=== PATIENT | female | born 1995 | race Caucasian/White ===

== ENCOUNTER 2023-11-06 13:22 | Emergency (ER) | payer OTHER, SELFPAY ==
[2023-11-06 13:26] VITALS: BP 100/65
[2023-11-06 13:39] LABS: % Basophils 1.2 % (0-2); % Eosinophils 7.1 % (0-6); % Immature Granulocytes 0.4 % (0-0.5); % Lymphocytes 30.6 % (20.5-51.1); % Monocytes 8.3 % (1.7-9.3); % Neutrophils 52.4 % (42.2-75.2); Absolute Basophils 0.1 10^3/uL (0-0.2); Absolute Eosinophils 0.5 10^3/uL (0-0.7); Absolute Lymphocytes 2.3 10^3/uL (1.2-3.4); Absolute Monocytes 0.6 10^3/uL (0.1-0.6); Absolute Neutrophils 3.9 10^3/uL (1.4-6.5); Hematocrit 39.6 % (37.0-47.0); Hemoglobin 13.5 g/dL (12.0-16.0); Mean Corp Hgb Conc. 34.1 g/dL (33.0-37.0); Mean Corpuscular Hgb 31.5 pg (27.0-31.0); Mean Corpuscular Volume 92.5 fL (81.0-99.0); Mean Platelet Volume 8.4 fL (7.4-10.4); Nucleated Red Blood Cells % 0 %; Platelet Count 339 10^3/uL (130-400); Red Blood Cell Count 4.28 10^6/uL (4.20-5.40); Red Cell Dist. Width 11.7 % (11.5-14.5); White Blood Cell Count 7.5 10^3/uL (4.8-10.8)
[2023-11-06 13:53] LABS: HCG, Serum Qualitative Screen Negative
[2023-11-06 13:55] LABS: ALT (SGPT) 19 U/L (0-35); AST (SGOT) 23 U/L (14-36); Albumin 4.6 g/dl (3.5-5.0); Alkaline Phosphatase 74 U/L (38-126); Blood Urea Nitrogen 15 mg/dl (7-17); Calcium 9.3 mg/dl (8.4-10.2); Carbon Dioxide 26 mmol/L (22-30); Chloride 106 mmol/L (98-107); Glucose 85 mg/dl (70-99); Lipase 205 U/L (23-300); Sodium 141 mmol/L (135-145); Total Bilirubin 0.4 mg/dl (0.2-1.3); Total Protein 7.4 g/dl (6.3-8.2); eGFR > 60.00
--- NOTE | 2023-11-06 15:38 | ED.GENMED ---
History of Present Illness
General
Chief Complaint: Abdominal Symptoms
Source: patient
Exam Limitations: none
Time Seen by Provider: 11/06/23 15:24
Travel History
Have you had any contact with someone who has COVID-19?: No
Do you have any symptoms of coronavirus? Fever > 100 degrees, chills, cough, shortness of breath, sore throat, loss of taste or smell, muscle aches, or headache?: No
History of Present Illness
History of Present Illness:
27-year-old female with right upper quadrant pain that radiates to the back that has been ongoing fairly consistently for the past 8 days. The pain is made worse slightly with deep breathing. She notes she is nauseous without vomiting. She notes
her stools have been manager drug in color and more loose. No sweats or chills. The pain is not made worse with eating. She does have history of reflux. She notes prior to the onset of her symptoms she had a 12-hour one-way drive to [place] and
back. She denies cough or hemoptysis. There is no chest pain or shortness of breath. No other complaints at this time
Past History
Past History
ED Past Medical History: Cancer (hodgkins lymphoma) and Psychiatric (A/D)
ED Past Surgical History: Other (lymph node bx)
Social History
Tobacco: Non-smoker
Alcohol: None
Drug: None
Personal: Single
Living: with family
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
Family History
Family History: Other (no fam hx of childhood cancer)
Phy Exam
Physical Exam
Physical Exam:
General: Well-appearing female no acute respiratory distress
HEENT: Normocephalic atraumatic sclera anicteric
Heart: Regular rate and rhythm no murmur
Lungs: Clear no wheezing
Abdomen soft tender to the right upper quadrant mild guarding no rebound tenderness normal bowel sounds no costovertebral angle tenderness
Extremities: No cyanosis or edema
Skin: Warm no rash
Course
Orders/Labs/Results
Orders:
Orders
11/06/23 13:31
Electrocardiogram (*1) Urgent
Reason for Study: Fatigue / Weakness
EKG- Treatment ONCE
Test Result ONCE
11/06/23 13:32
Complete Blood Count/With Diff Urgent
Comprehensive Metabolic Panel Urgent
HCG, Serum Qualitative Screen Urgent
Lipase Urgent
11/06/23 15:35
US Abdomen Complete/Upper Urgent
Comment:
Reason For Exam: RUQ pain
11/06/23 15:37
0.9% Sodium Chloride 1000 ml [Nss] 1,000 ml IV BOLUS
11/06/23 16:06
D-Dimer Urgent
11/06/23 16:44
Urinalysis Reflex To Culture Urgent
Date Specimen was Collected: 11/06/23
Time Specimen was Collected: 16:34
Abnormal Lab Results
11/06/23
13:32
MCH 31.5 H pg
(27.0-31.0)
Eosinophils % 7.1 H %
(0-6)
11/06/23 13:32
11/06/23 13:32
Vital Signs
Initial and Last Documented VS:
Initial Vital Signs
Temp Pulse Resp BP Pulse Ox
98.6 F 95 16 100/65 98
11/06/23 13:26 11/06/23 13:26 11/06/23 13:26 11/06/23 13:26 11/06/23 13:26
Last Documented Vital Signs
Temp Pulse Resp BP Pulse Ox
98.6 F 81 16 110/65 98
11/06/23 13:26 11/06/23 17:50 11/06/23 13:26 11/06/23 17:50 11/06/23 13:26
MDM/Problems Addressed
Differential Diagnosis Includes:
Right upper quadrant abdominal pain. Consider musculoskeletal pain versus renal colic versus biliary colic versus gastritis versus constipation. Patient also had a long trip consider possible PE given that is slightly worse with deep breathing.
Will check labs D-dimer added for screening. Will start with ultrasound of the given fluids urinalysis pending
*Critical Care Note
Total Time (30-74mins, 75-104mins- exclusive of procedures): Not Applicable
Update Note
Update Note:
Ultrasound negative for acute abdominal pathology. Urinalysis negative D-dimer negative. Patient has right flank pain. No respiratory distress. Not a PE with negative D-dimer. Suspect possible musculoskeletal flank pain versus gastritis given
recent NSAID use. Recommended Tylenol for pain. Stable for discharge with follow-up
ED Attending Note
-
Portions of this chart may have been created with voice recognition software.� Occasional wrong word or��sound alike� substitutions may have occurred due to the inherent limitations of voice recognition software.
Discharge Plan
Departure
Patient Disposition: Home (Routine Discharge)
Date of Disposition: 11/06/23
Time of Disposition: 17:12
Patient with high blood pressure during this ER visit?: No
Discharge Problem:
Acute flank pain
Instructions: Abdominal Pain
Prescriptions:
No Action
Zyrtec
10 mg PO DAILY
hydroxyzine pamoate [Vistaril] 25 MG capsule
25 mg PO TIDPRN PRN (Reason: as directed)
lansoprazole 30 MG tablet,disintegrat, delay rel
30 mg PO DAILY
Lexapro:
10 mg PO DAILY
sucralfate [Carafate] 1 GM/10 ML suspension
1 gm PO QID Qty: 400 0RF
Referrals:
Pino Dougherty MD [Family Provider] -
Activity Restrictions/Additional Instructions:
As discussed, your liver functions are normal. You may use Tylenol if needed for pain. Consider using antacids for possible gastritis. Return if worse otherwise follow-up with your family doctor
Interventions
Interventions:
*Risk Screen - Suicide Last Done: 11/06/23 16:17
*General Assessment Last Done: 11/06/23 16:17
*Neglect/Abuse Screening Last Done: 11/06/23 16:17
ED- Fall Risk Assessment Last Done: 11/06/23 16:18
*ED COVID-19 Vaccine History Last Done: 11/06/23 13:26
*Nursing Disposition Last Done: 11/06/23 17:50
HZ-Luuafb-Ybadmwuiva Assessment Last Done: 11/06/23 17:44
Discharge Date and Time
Discharge Date/Time: 11/06/23 17:51
Print Language: MALTESE
[2023-11-06 16:01] VITALS: BMI 25.4
[2023-11-06 16:31] LABS: D-Dimer < 0.27 ug/mlFEU (0.00-0.50)
[2023-11-06] MEDS: NSS 1000 IV (16:46)
[2023-11-06 16:57] LABS: Urine Albumin Negative (Neg - Trace); Urine Bilirubin Negative (Negative); Urine Character Clear (Clear); Urine Color Yellow; Urine Glucose Negative (Negative); Urine Ketone Negative (Negative); Urine Leukocyte Negative (Negative); Urine Nitrite Negative (Negative); Urine Occult Blood Negative (Negative); Urine Urobilinogen Negative (Neg - 1+)
[2023-11-06 17:42] VITALS: BP 110/65
[2023-11-06 17:50] VITALS: BP 110/65
== END 2023-11-06 17:51 | disposition home or self-care (01) ==
LOC: EMR 13:22
PROVIDERS: Emergency Medicine; Physician Assistant; EMERGENCY PHYSICIAN Student in an Organized Health Care Education/Training Program; FAMILY PHYSICIAN Surgery Surgical Critical Care
DX: R10.11 Right upper quadrant pain (principal); M54.9 Dorsalgia, unspecified; R19.5 Other fecal abnormalities; K21.9 Gastro-esophageal reflux disease without esophagitis; Z85.71 Personal history of Hodgkin lymphoma; F41.9 Anxiety disorder, unspecified; F32.A Depression, unspecified; Z88.1 Allergy status to other antibiotic agents; Z88.0 Allergy status to penicillin
CPT/HCPCS: 99284; 96360; 76700; 80053; 81003; 83690; 84703; 85025; 85379; 93005